=== PATIENT | male | born 1980 | race Caucasian/White ===

== ENCOUNTER 2021-06-26 21:58 | Emergency (ER) | payer OTHER | END 2021-06-26 23:33 | disposition left against medical advice (07) | LOC: ER 21:58 | DX: E86.0 Dehydration (principal); Z53.21 Procedure and treatment not carried out due to patient leaving prior to being seen by health care provider ==

== ENCOUNTER 2021-06-27 00:34 | Emergency (ER) | payer OTHER ==
[~2021-06-27] VITALS: Ht 175.3 cm; Wt 84.1 kg
[2021-06-27 01:12] VITALS: BP 142/94
--- NOTE | 2021-06-27 01:42 | PHYS DOC ---
Adult General Chief Complaint Chief Complaint: DEHYDRATION HPI HPI Patient is a 41-year-old male, otherwise healthy who presents with a chief complaint of concern for dehydration. States that they just moved to [place], as they are today and he was outside in the heat all day moving furniture. States towards the end of the day he began to feel fatigued and had some muscle aches in his legs. Denies any headache changes in vision, chest pain, shortness of breath, abdominal pain, nausea, vomiting, dysuria, hematuria, diarrhea or blood in the stool. States he is able to drink fluids. Review of Systems Review of Systems Review of systems otherwise unremarkable except noted in HPI Physical Exam Physical Exam Constitutional: Well developed, well nourished, no acute distress, non-toxic appearance. [] HENT: Normocephalic, atraumatic, bilateral external ears normal, oropharynx moist, no oral exudates, nose normal. [] Eyes: conjunctiva normal, no discharge. [] Neck: Normal range of motion, no tenderness, supple, no stridor. [] Cardiovascular:Heart rate regular rhythm, no murmur [] Lungs & Thorax: Bilateral breath sounds clear to auscultation [] Abdomen: soft, no tenderness, no masses, no pulsatile masses. [] Skin: Warm, dry, no erythema, no rash. [] Back: no CVA tenderness. [] Extremities: No tenderness, ROM intact, no edema. [] Neurologic: Alert and oriented X 3, no focal deficits noted. [] Psychologic: Affect normal, judgement normal, mood normal. [] EKG EKG [] Radiology/Procedures Radiology/Procedures [] Heart Score C/O Chest Pain: No Risk Factors: Risk Factors: DM, Current or recent (<one month) smoker, HTN, HLP, family history of CAD, obesity. Risk Scores: Risk Factors: DM, Current or recent (<one month) smoker, HTN, HLP, family history of CAD, obesity. Course & Med Decision Making Course & Med Decision Making Patient is a 41-year-old male who presents with a chief complaint of concern for dehydration Vital signs not concerning. Physical exam noted above. Mucous membranes moist. Capillary refill appropriate. Able to make relatively clear urine. Able to take p.o. without issue. Given Tylenol and ibuprofen. Discussed all findings with patient and advised staying inside, staying cool, plenty of hydration and light nutrition. Advised to follow-up in the morning with his primary care physician. Gave return precautions to the ED. Patient grateful, verbalized understanding and agreed with plan of discharge. Dragon Disclaimer Dragon Disclaimer This electronic medical record was generated, in whole or in part, using a voice recognition dictation system. Departure Departure: Impression: Primary Impression: Heat exhaustion Disposition: HOME / SELF CARE / HOMELESS Condition: GOOD Referrals: NON,STAFF (PCP) ANTONIA MCDONNELL MD Patient Instructions: Dehydration, Adult, Heat Disorders Additional Instructions: Thank you for coming into the emergency department tonight and allowing us to take care of you. Please read all the attached information above very carefully. As discussed, please stay inside, cool and drink plenty of fluids and eat small nutritious meals. Please call your primary care physician first thing in the morning or the primary care at the number provided to establish care and set up follow-up visits. Please come back to the ED with new or concerning symptoms as discussed. BRICE LOVE MD Jun 27, 2021 01:42
[2021-06-27] MEDS ORDERED: CYCLOBENZAPRINE 10 MG TABLET. ONE (01:58)
[2021-06-27] MEDS ORDERED: ACETAMINOPHEN 500 MG TABLET PO ONE (02:00)
[2021-06-27] MEDS ORDERED: CYCLOBENZAPRINE 10 MG TABLET. PO ONE (02:00)
[2021-06-27] MEDS ORDERED: IBUPROFEN 400 MG TABLET. PO ONE (02:00)
== END 2021-06-27 02:00 | disposition home or self-care (01) ==
LOC: ER 00:34
DX: T67.5XXA Heat exhaustion, unspecified, initial encounter (principal); E86.0 Dehydration; X58.XXXA Exposure to other specified factors, initial encounter; Y93.89 Activity, other specified; Y92.89 Other specified places as the place of occurrence of the external cause; Y99.8 Other external cause status
CPT/HCPCS: 99284-25